=== PATIENT | female | born 1985 | race Caucasian/White ===

== ENCOUNTER → 2017-07-01 15:14 | Outpatient (CLI) | payer BC, SELFPAY ==
--- NOTE | 2017-07-01 15:20 | XR_ITS ---
XR foot LT min 3V HISTORY: ITS.REASON: LT HEEL PAIN ORDERING PHYSICIAN: Roz Lozano PATIENT AGE: 32 years COMPARISON: None FINDINGS: No fracture or dislocation. No lytic or blastic change. There is normal mineralization.. The joint spaces are well-preserved. No significant degenerative/arthritic changes. No erosive changes evident. There is a small bony spur projecting off the plantar surface of the calcaneus measuring 6 mm without erosive change IMPRESSION: Small calcaneal spur otherwise negative left foot
== END ==
PROVIDERS: PCP Nurse Practitioner Family; Visit Provider Nurse Practitioner Family
DX: M79.672 Pain in left foot (principal)
CPT/HCPCS: 73630

== ENCOUNTER → 2019-05-19 13:42 | Outpatient (CLI) | payer BC, SELFPAY ==
--- NOTE | 2019-05-19 13:51 | CT_ITS ---
PROCEDURE: CT HEAD/BRAIN WO CON CLINICAL INDICATION: POST TRAUMATIC JORDAN,CONCUSSION COMPARISON: No exams were available for comparison TECHNIQUE: Axial images obtained. All CT scans at the facility use one or more dose reduction, viz: automated exposure control, ma/kV adjustment per patient size (including targeted exams where dose is matched to indication, i.e. head), or iterative reconstruction technique. FINDINGS: No midline shift, mass effect, intracranial hemorrhage, hydrocephalus, or extra-axial fluid collection is evident. The calvarium has an unremarkable appearance. No mastoid effusion. No sinus air-fluid level. IMPRESSION: No acute intracranial finding Dictated by: Paul Goldman MD 05/19/2019 14:11 Electronically signed by Paul Goldman MD in [place] 05/19/2019 14:11
== END ==
PROVIDERS: PCP Family Medicine; Visit Provider Nurse Practitioner
DX: G44.319 Acute post-traumatic headache, not intractable (principal); S06.0X0A Concussion without loss of consciousness, initial encounter
CPT/HCPCS: 70450

== ENCOUNTER → 2021-11-04 09:43 | Outpatient (CLI) | payer BC, OTHER, SELFPAY ==
--- NOTE | 2021-11-04 09:50 | XR_ITS ---
FINAL REPORT CLINICAL HISTORY: RT SIDED LOW BACK PAIN down into right leg FINDINGS: AP, lateral, and oblique views of the lumbar spine were obtained. There is no acute fracture or acute malalignment. Vertebral body height is preserved. There is multilevel degenerative disc disease which is mild and most pronounced at L1-L2. No acute paraspinal abnormality is identified. IMPRESSION: No acute osseous abnormalities lumbar spine. Reviewed, Interpreted and Dictated by Corrina Jacobs MD Transcribed by Keyana Sanchez Authenticated and [facility]
== END ==
PROVIDERS: PCP Nurse Practitioner Family; Visit Provider Nurse Practitioner Family
DX: M54.41 Lumbago with sciatica, right side (principal)
CPT/HCPCS: 72110

== ENCOUNTER → 2022-03-25 14:49 | Outpatient (CLI) | payer BC, OTHER, SELFPAY ==
--- NOTE | 2022-03-25 14:53 | XR_ITS ---
FINAL REPORT CLINICAL HISTORY: LT SIDED NECK PAIN,DECREASED ROM, no sx, no injury FINDINGS: CERVICAL SPINE Five views were obtained. There is no acute fracture. There is no malalignment. There are mild degenerative changes at C6-7 with small osteophytes. There is no soft tissue abnormality. IMPRESSION: Mild degenerative changes at C6-7 with no acute bony abnormality. Reviewed, Interpreted and Dictated by Jeffery Jackson III, MD Transcribed by Sindhu Robles Authenticated and [facility]
== END ==
PROVIDERS: PCP Nurse Practitioner Family; Visit Provider Nurse Practitioner Family
DX: M54.2 Cervicalgia (principal); R29.898 Other symptoms and signs involving the musculoskeletal system
CPT/HCPCS: 72050

== ENCOUNTER → 2022-04-09 08:00 | Outpatient (CLI) | payer BC, OTHER, SELFPAY ==
--- NOTE | 2022-04-09 08:05 | MR_ITS ---
FINAL REPORT CLINICAL HISTORY: LEFT SIDED NECK PAIN. DEGENERATIVE DISC DISEASE FINDINGS: Multiplanar MR imaging of the cervical spine was performed without contrast. On the sagittal T2-weighted images, disc degeneration is seen at multiple levels. There is no evidence of fracture. The vertebral alignment is normal. The cervical spinal cord has an unremarkable appearance without evidence of mass, edema or syrinx. No significant canal stenosis is identified. The cervicomedullary junction is normal. C2-3: There is no significant canal stenosis or neural foraminal narrowing. C3-4: Uncovertebral osteophytes are present with moderate right neural foraminal narrowing. C4-5: Uncovertebral osteophytes are present with severe right and moderate left neural foraminal narrowing. C5-6: An annular bulge and uncovertebral osteophytes are present. There is a small right paracentral disc protrusion which indents the thecal sac. There is mild bilateral neural foraminal narrowing. C6-7: An annular bulge and uncovertebral osteophytes are present. There is a small central disc protrusion with moderate right and mild left neural foraminal narrowing. C7-T1: An annular bulge is present. There is no significant canal stenosis or neural foraminal narrowing. IMPRESSION: Disc protrusions at C5-6 and C6-7 as detailed above. Multilevel degenerative disc disease and spondylosis. Reviewed, Interpreted and Dictated by Jeffery Jackson III, MD Transcribed by Elizabeth Oneill Authenticated and [facility]
== END ==
PROVIDERS: PCP Nurse Practitioner Family; Visit Provider Nurse Practitioner Family
DX: M54.2 Cervicalgia (principal); M50.30 Other cervical disc degeneration, unspecified cervical region; R29.898 Other symptoms and signs involving the musculoskeletal system
CPT/HCPCS: 72141; 76376

== ENCOUNTER → 2022-09-15 09:55 | Outpatient (CLI) | payer BC, OTHER, SELFPAY ==
--- NOTE | 2022-09-15 10:14 | XR_ITS ---
FINAL REPORT CLINICAL HISTORY: CHEST PAIN FINDINGS: PA and lateral views of the chest are obtained. There is no prior exam for comparison. The cardiac and mediastinal silhouettes are within normal limits. The lungs are clear. There is no pleural effusion, pneumothorax, or acute osseous abnormality. IMPRESSION: No radiographic evidence of acute cardiac or pulmonary disease. Reviewed, Interpreted and Dictated by Corrina Jacobs MD Transcribed by Beverly Palencia Authenticated and [facility]
[2022-09-15 10:47] LABS: Basophils % 0.5 % (0.1-2.0); Eosinophils # 0.1 K/mm3 (0.0-0.4); Eosinophils % 1.5 % (0.1-12.0); Hematocrit 43.4 % (37.0-47.0); Hemoglobin 14.2 g/dL (12.2-16.2); Lymphocytes # 1.5 K/mm3 (0.7-4.5); Lymphocytes % 20.2 % (10-50); Mean Corpuscular HGB Conc 32.7 g/dL (31.8-35.4); Mean Corpuscular Hemoglobin 25.7 pg (27.0-31.2); Mean Corpuscular Volume 78.6 fl (81-99); Mean Platelet Volume 8.8 fl (7.4-10.4); Monocytes # 0.3 K/mm3 (0.1-1.0); Monocytes % 4.5 % (1.7-9.3); Neutrophils # 5.3 K/mm3 (1.8-7.8); Neutrophils % 73.2 % (37.0-80.0); Platelet Count 285 K/mm3 (142-424); Red Blood Count 5.52 M/mm3 (4.20-5.40); Red Cell Distribution Width 14.8 % (11.5-17.5); White Blood Count 7.3 K/mm3 (4.8-10.8)
[2022-09-15 11:22] LABS: Alanine Aminotransferase 31 U/L (12-78); Albumin Level 4.3 g/dl (3.5-5.0); Albumin/Globulin Ratio 1.8 (1.1-1.8); Alkaline Phosphatase 79 U/L (38-126); Aspartate Amino Transferase 27 U/L (14-36); Bilirubin,Total 0.5 mg/dl (0.2-1.3); Blood Urea Nitrogen 8 mg/dl (7-17); Calcium 8.6 mg/dl (8.4-10.2); Carbon Dioxide 24 mmol/L (22.0-30.0); Chloride 104 mmol/L (98-107); Chol/HDL Ratio 4.7 (1-3.5); Cholesterol 174 mg/dl (140-200); Estimated Glomerular Filt Rate 138 ml/min (>60); GFR (African American) 167 ML/MIN (>60); Globulin 2.4 g/dL (1.3-3.2); Glucose 134 mg/dl (74-100); HDL Cholesterol 37 mg/dl (40-60); Magnesium 1.6 mg/dl (1.6-2.3); Sodium 139 mmol/L (136-145); Total Protein,Serum 6.7 g/dl (6.3-8.2); Triglycerides 144 mg/dl (30-150); VLDL Cholesterol 29 mg/dL (0-40)
[2022-09-15 11:33] LABS: Direct LDL Cholesterol 110.02 mg/dL (100-129)
[2022-09-15 11:34] LABS: Troponin I < 0.01 ng/ml (0.00-0.034)
[2022-09-15 12:54] LABS: Hemoglobin A1C 5.6 % (4.0-6.0)
[2022-09-16 12:09] LABS: C-Reactive Protein, Cardiac 41.91 mg/L (0.00-3.00)
== END ==
PROVIDERS: PCP Nurse Practitioner Family; Visit Provider Nurse Practitioner Family
DX: R06.02 Shortness of breath (principal); R07.9 Chest pain, unspecified; R00.0 Tachycardia, unspecified; I10 Essential (primary) hypertension; E11.9 Type 2 diabetes mellitus without complications
CPT/HCPCS: 36415; 71046; 80053; 80061; 83036; 83735; 84484; 85025; 86141; 93225; 93226

== ENCOUNTER 2023-08-19 12:24 | Outpatient (CLI) | payer BC, OTHER, SELFPAY ==
[2023-08-19 12:48] LABS: Hematocrit 44.3 % (37.0-47.0); Hemoglobin 14.7 g/dL (12.2-16.2); Mean Corpuscular HGB Conc 33.1 g/dL (31.8-35.4); Mean Corpuscular Volume 81.5 fl (81-99); Platelet Count 282 K/mm3 (142-424); Red Blood Count 5.43 M/mm3 (4.20-5.40); White Blood Count 7.6 K/mm3 (4.8-10.8)
[2023-08-19 13:31] LABS: Chloride 103 mmol/L (98-107); Sodium 138 mmol/L (136-145)
[2023-08-19 13:32] LABS: Potassium 4.3 mmoL/L (3.5-5.1)
[2023-08-19 13:34] LABS: Alanine Aminotransferase 21 U/L (12-78); Albumin Level 4.4 g/dl (3.5-5.0); Albumin/Globulin Ratio 1.8 (1.1-1.8); Alkaline Phosphatase 77 U/L (38-126); Anion Gap 15.3 mEq/L (5-15); Aspartate Amino Transferase 24 U/L (14-36); Bilirubin,Total 0.7 mg/dl (0.2-1.3); Blood Urea Nitrogen 10 mg/dl (7-17); Carbon Dioxide 24 mmol/L (22.0-30.0); Estimated Glomerular Filt Rate 137 ml/min (>60); GFR (African American) 166 ML/MIN (>60); Globulin 2.4 g/dL (1.3-3.2); Total Protein,Serum 6.8 g/dl (6.3-8.2)
[2023-08-19 13:35] LABS: Calcium 9.5 mg/dl (8.4-10.2); Glucose 115 mg/dl (74-100)
[2023-08-19 14:05] LABS: Thyroid Stimulating Hormone 0.83 uIU/mL (0.465-4.68)
[2023-08-20 16:13] LABS: Deamidated Gliadin Abs, IgA 6 units (0-19); Deamidated Gliadin Abs, IgG 5 units (0-19); Endomysial IgA Antibody Negative (Negative); Tissue Transglutaminase IgA Ab <2 U/mL (0-3); Tissue Transglutaminase IgG Ab 3 U/mL (0-5)
[2023-08-21 11:19] LABS: Reticulin IgA Antibody Negative titer (Neg:<1:2.5)
[2023-08-29 10:44] LABS: Miscellaneous Test SCANNED IMAGE
== END 2023-08-19 23:59 | disposition home or self-care (01) ==
LOC: LAB 12:25
PROVIDERS: PCP Nurse Practitioner; Visit Provider Internal Medicine
DX: R10.13 Epigastric pain (principal)
CPT/HCPCS: 36415; 80053; 83516; 83970; 84443; 85014; 85018; 85048; 85049; 86255; 86256

== ENCOUNTER 2023-11-16 09:14 | Outpatient (CLI) | payer BC, OTHER, SELFPAY ==
[2023-11-16 11:23] LABS: Collection Time,Urine 24 hours; Total Volume,Urine 1900 mL (600-1600)
[2023-11-16 11:26] LABS: Creatinine 24 Hour,Urine 1254 mg/24hr (630-2500); Creatinine,Urine Random 66 mg/dL (Not Estab.)
[2023-11-17 10:10] LABS: Calcium, Urine 24hr 126 mg/24 hr (0-320)
== END 2023-11-16 23:59 | disposition home or self-care (01) ==
LOC: LAB.DROPOF 09:15
PROVIDERS: PCP Family Medicine; Visit Provider Internal Medicine Endocrinology, Diabetes & Metabolism
DX: E21.3 Hyperparathyroidism, unspecified (principal)
CPT/HCPCS: 82340; 82570

== ENCOUNTER 2025-01-10 14:29 | Outpatient (CLI) | payer BC, OTHER, SELFPAY ==
--- OUTSIDE RECORDS SUMMARY | 2025-01-10 14:32 | XMS_ITS | Clinical Summary ---
Author Organization [facility] Address [address] [place] [address] Care Team Providers Care Wheat Washer Name Role Phone Cristopher Haque MD Primary Care Provider [phone] Allergies No known active allergies Medications Jardiance 25 MG tablet tablet Take 1 tablet by mouth Daily. Active lisinopril (PRINIVIL,ZESTR IL) 10 MG tablet lisinopril 10 mg tablet Bedtime Active Social History Tobacco Use Types Packs/Day Years Used Date Smoking Tobacco: Never Assessed Abuse Screen Answer Date Recorded Unsafe at Home or Work/School Not on file Feels Threatened by Someone? Not on file Does Anyone Keep You from Co ntacting Others or Doint Things Outside the Home? Not on file 10/25/2023 Physical Sign of Abuse Present Not on file 0 10/25/2023 Housing Stability Answer Date Recorded Current Living Arrangements Not on file 01/11 Potentially Unsafe Housing Conditions Not on lm e 01/23/2023 Family and Community Support Answer Hardy e Recorded Help with Day-to-Day Activities Not on file 01/23/2023 Lonely or Isolated Not on file 01/23/2023 Employment Answer Date Recorded Do you want help finding or keeping work or a alannah b? Not on file 01/23/2023 Disabilities Answer Date Recorded Concentrating, Remembering, or Making Decisions Difficulty Not on file 01/23/2023 Doing Errands Independently Difficulty Not on fi le 01/23/2023 Education Answer Date Recorded Help with school or training? Not on file Preferred Language Not on file 01/23/2023 Comments No Sex and Gender Information Value Date Recorded Sex Assigned at Not on file Legal Sex Female 3:15 PM EDT Gender Identity Not on file Sexual Orientation Not on file Last Filed Vital Signs Vital Sign Reading Time Taken Comments Blood Pressure 96/55 11/19/2022 4:06 PM EDT Pulse 68 11/19/2022 4:06 PM EDT Temperature 36.8 C (98.3 F) 11/19/2022 1:43 PM EDT Respiratory Rate 14 11/19/2022 3:00 PM EDT Oxygen Saturation 99% 11/19/2022 2:16 PM EDT Inhaled Oxygen Concentration - - Weight 104 kg (229 lb) 11/19/2022 1:43 PM EDT Height 177.8 cm (5' 10 ) 11/19/2022 1:43 PM EDT Body Mass Index 32.86 11/19/2022 1:43 PM EDT Plan of Treatment Health Maintenance Due Date Last Done Comments Annual Gynecologic Pelvic an d Breast Exam 1984 ANNUAL PHYSICAL 10/03/2022 HEPATITIS C SCREENING 10/03/2022 TDAP/TD VACCINES (2 - Tdap) 01/04/2024 01/03/2014 MAMMOGRAM 2024 INFLUENZA VACCINE 11/11/2024 02/17/2022 Pneumococcal Vaccine 0-49 Aged Out No longer eligible based on patient's age to complete this topic Insurance [address] [address] EMPLOYEE Care Teams Wheat Washer Relationship Specialty Start Date End Date Cristopher Haque MD [address] [place] [address] PCP - General Family Medicine 09/29/22
--- OUTSIDE RECORDS SUMMARY | 2025-01-10 14:32 | XMS_ITS | Clinical Summary ---
Author Organization [facility] Address [address] [place] [address] Care Team Providers Care Lab Scientist Name Role Phone Cristopher Haque MD Primary Care Provider [phone] Allergies No known active allergies Medications Jardiance 25 MG Take 1 tablet (25 mg) by mouth 1 (one) time each day. 08/13/2023 Active OneTouch Ultra test strip USE DIRECTED TO TEST BLOOD SUGAR ONCE DAILY 08/13/2023 Active Lancets (OneTouch Delica Plus [id number]) misc 1 (one) time each day. use as directed 08/13/2023 Active lisinopril 10 MG tablet Take 1 tablet (10 mg) by mouth 1 (one) time each day. Active pantoprazole (Protonix) 40 MG EC tablet Take 1 tablet (40 mg) by mouth 2 (two) times a day. 08/19/2023 Active Multiple Vitamin (multivitamin) tablet Take 1 tablet by mouth 1 (one) time each day. Active semaglutide 1 MG/DOSE (Ozempic, 1 MG/DOSE,) 2 MG/1.5ML solution pen-injector inj. pen 04/17/2024 Active nitrofurantoin, macrocrystal-mo nohydrate, (Macrobid) 100 MG capsule 08/06/2024 Active Immunizations Immunization Administration Dates Next Due Hep A, Adult 09/02/2018,02/04/2018 Influenza, injectable, MDCK, preservative free, quadrivalent 02/17/2022 Influenza, injectable, quadrivalent, preservativ e free 04/15/2023 Td (adult), 5 Lf tetanus tox oid, preservative free, adsorbed 01/03/2014 Family History Medical History Relation Name Comments Diabetes type II Father Luther Rodriguez Heart disease Father Luther Rodriguez Relation Name Status Comments Father Luther Rodriguez Social History Tobacco Use Types Packs/Day Years Used Date Smoking Tobacco: Never Passive Smoke Exposure: Never Smokeless Tobacco: Never Tobacco Cessation:Counseling Given: Not Answered Alcohol Use Standard Drinks/Week Comments Never 0 (1 standard drink = 0.6 oz pur e alcohol) PHQ-2 Answer Date Recorded Patient Health Questionnaire-2 Score 0 08/10/2024 Comments No Sex and Gender Information Value Date Recorded Sex Assigned at Not on file Legal Sex Female 12:44 PM EDT Gender Identity Not on file Sexual Orientation Not on file Last Filed Vital Signs Vital Sign Reading Time Taken Comments Blood Pressure 113/80 08/10/2024 10:04 AM EDT Pulse 88 08/10/2024 10:04 AM EDT Temperature - - Respiratory Rate - - Oxygen Saturation 99% 01/20/2024 10:15 AM EDT Inhaled Oxygen Concentration - - Weight 100 kg (220 lb 14.4 oz) 08/10/2024 10:04 AM EDT Height 177.8 cm (5' 10 ) 08/10/2024 10:04 AM EDT Body Mass Index 31.7 08/10/2024 10:04 AM EDT Plan of Treatment Health Maintenance Due Date Last Done Comments [facility]-HIV Screening 1984 [facility]-Hepatitis C Screening 1984 [facility]-Infant/Child/Adol SDOH Screenings 1984 [facility]-Varicella Vaccines (1 of 2 - 13+ 2-dose series) 1997 [facility]- SDOH Screenings 2002 [facility]-Adult SDOH Screenings 2002 [facility]-Hepatitis B Vaccines (1 of 3 - 19+ 3-dose series) 2003 [facility]-Pap Smear 2005 HPV Vaccines (1 - 3-dose SCDM series) 2011 [facility]-DTaP,Tdap,and Td Vaccines (1 - Tdap) 01/04/2014 01/03/2014 [facility]-Cervical Cancer Screening 2014 [facility]-HPV/Cotest 2014 [id number] Vaccine ( season) 2024 04/15/2023, 01/20/2022, 02/22/2021, Additional history exists [facility]-Influenza Vaccine (#1) 12/12/202401/26, 04/15/2023, 02/17/2022 [facility]-Depression Screening 08/10/2025 08/10/2024 [facility]-Zoster Vaccines (1 of 2) 2034 [facility]-Hepatitis A Vaccines Aged Out 09/02/2018, 01/12 No longer eligible based on patient's age to complete this topic [facility]-Pneumococcal Vaccine: Pediatrics (0 to 5 Years) and At-Risk Patients (6 to 49 Years) Aged Out 01/27/2024 No longer eligible based on patient's age to complete this topic [facility]-Obesity Intervention Completed 025, 01/20/2024, 11/11/2023 [facility]-HIB Vaccines Aged Out No longer e ligible based on patient's age to complete this topic [facility]-IPV Vaccines Aged Out No longer e ligible based on patient's age to complete this topic [facility]-Rotavirus Vaccines Aged Out No lo nger eligible based on patient's age to complete this topic Insurance [facility] Care Teams Lab Scientist Relationship Specialty Start Date End Date Cristopher Haque MD [address] [place] [address] [address] [place] [id number] PCP - General Family Medicine 11/11/23
--- NOTE | 2025-01-10 14:36 | US_ITS ---
FINAL REPORT CLINICAL HISTORY: SOFT TISSUE NODULE/MASS ON RIGHT UPPER LEG FINDINGS: Limb sonographic images of the right upper leg was performed. No mass or fluid collection is seen at the area of interest. IMPRESSION: No mass or fluid collection seen at the area of interest. Reviewed, Interpreted and Dictated by Sukhi Schneider MD Transcribed by Elizabeth Oneill Authenticated and [facility]
== END 2025-01-10 23:59 | disposition home or self-care (01) ==
LOC: RAD 14:30
PROVIDERS: PCP Nurse Practitioner; Visit Provider Nurse Practitioner
DX: M79.9 Soft tissue disorder, unspecified (principal)
CPT/HCPCS: 76882